=== PATIENT | female | born 1955 | race Caucasian/White ===

== ENCOUNTER 2021-12-29 11:18 | Outpatient (CLI) | payer MEDICARE ==
[2021-12-29 12:18] LABS: Anion Gap 15 mmol/L (10-20); BUN (Urea Nitrogen) 11 mg/dL (9.8-20.1); Calc. Creatinine Clearance 0 mL/min (70-130); Calcium 9.3 mg/dL (7.8-10.44); Carbon Dioxide 22 mmol/L (23-31); Chloride 98 mmol/L (98-107); Glucose 94 mg/dL (80-115); Potassium 4.2 mmol/L (3.5-5.1); Sodium 131 mmol/L (136-145)
[2021-12-30 00:10] LABS: SARS-CoV-2 PCR by NAA Not Detected (NotDetected)
== END 2021-12-29 11:19 | disposition home or self-care (01) ==
LOC: LABBT 11:18
PROVIDERS: ATTEND Surgery
DX: Z01.818 Encounter for other preprocedural examination (principal); C54.2 Malignant neoplasm of myometrium; Z20.822 Contact with and (suspected) exposure to COVID-19
CPT/HCPCS: 80048; 93005; U0003; U0005; 93010

== ENCOUNTER 2022-04-14 14:51 | Inpatient (IN) | payer OTHER ==
[2022-04-14] MEDS ORDERED: Promethazine HCl 25 MG/ML VIAL IM PRN (16:49)
[2022-04-14] MEDS ORDERED: Insulin Regular 300 UNITS/3 ML VIAL SC PRN ×2 (16:49)
[2022-04-14] MEDS ORDERED: Ondansetron PF 4 MG/2 ML Vial IVP PRN (16:49)
[2022-04-14] MEDS ORDERED: Dextrose 50% Abboject 50 ML SYRINGE SLOW IVP PRN (16:49)
[2022-04-14] MEDS ORDERED: Morphine 2 MG/ML VIAL SLOW IVP PRN (16:49)
[2022-04-14] MEDS ORDERED: Dextrose 5% in Water 1,000 ML IV PRN (16:49)
[2022-04-14] MEDS ORDERED: Ondansetron ODT 4 MG TAB PO PRN (16:49)
[2022-04-14] MEDS ORDERED: hydrALAZINE 20 MG/ML VIAL SLOW IVP PRN (16:49)
[2022-04-14 17:14] LABS: #Basophils 0.1 thou/uL (0.0-0.2); #Eosinphils 0.1 thou/uL (0.0-0.7); #Lymphocytes 1.7 thou/uL (1.20-3.40); #Monocytes 0.6 thou/uL (0.11-0.59); #Neutrophils 10.3 thou/uL (1.40-6.50); %Basophils 0.4 % (0.0-1.0); %Eosinophils 0.6 % (0.0-10.0); %Lymphocytes 13.2 % (21.0-51.0); %Neutrophils 80.7 % (42.0-75.0); Hemoglobin 11.6 g/dL (12.0-16.0); Mean Corpuscular HGB CONC 35.1 g/dL (32.0-36.0); Mean Platelet Volume 5.6 fL (7.4-10.4); Platelet Count 421 thou/uL (130-400); RBC Distribution Width 16.4 % (11.5-14.5); Red Blood Cell (RBC) Count 2.97 mill/uL (4.20-5.40); White Blood Cell (WBC) Count 12.7 thou/uL (4.8-10.8)
[2022-04-14 17:25] LABS: MDiff Complete? YES; Macrocytosis SLIGHT = 6-15 cells (100X) (0-5/hpf); Platelet Morphology Comment Appears Increased
[2022-04-14 17:29] LABS: SARS-CoV-2 NAA Rapid Test Not Detected (NotDetected)
[2022-04-14] MEDS ORDERED: Gabapentin 100 MG CAP PO SCH (17:30)
[2022-04-14 17:36] LABS: Anion Gap 12 mmol/L (10-20); BUN (Urea Nitrogen) 10 mg/dL (9.8-20.1); Calc. Creatinine Clearance 0 mL/min (70-130); Calcium 8.8 mg/dL (7.8-10.44); Carbon Dioxide 22 mmol/L (23-31); Chloride 91 mmol/L (98-107); Estimated GFR 97; Glucose 106 mg/dL (80-115); Magnesium 1.9 mg/dL (1.6-2.6); Phosphorus 3.1 mg/dL (2.3-4.7); Potassium 4.4 mmol/L (3.5-5.1); Sodium 121 mmol/L (136-145)
[2022-04-14] MEDS ORDERED: CEFAZOLIN 2 GM in Sodium Chloride 0.9% 100 ML IVPB SCH (19:00)
[2022-04-14] MEDS ORDERED: Morphine 4 MG/ML VIAL ONE (19:36)
[2022-04-14 21:30] LABS: Magnesium 1.9 mg/dL (1.6-2.6); Phosphorus 3.3 mg/dL (2.3-4.7)
[2022-04-14] MEDS: Senokot S 8.6-50 MG TAB PO SCH (22:37)
[2022-04-14] MEDS: Famotidine 20 MG TAB PO SCH (22:37)
[2022-04-14] MEDS: Ketorolac Tromethamine 30 MG/ML VIAL IVP SCH (22:38)
[2022-04-14] MEDS: traMADol HCl 50 MG TAB PO PRN (22:38)
[2022-04-14] MEDS: Gabapentin 100 MG CAP PO SCH (22:38)
[2022-04-14] MEDS: Acetaminophen 500 MG TAB PO SCH (22:42)
[2022-04-14] MEDS: traMADol HCl 50 MG TAB PO SCH (22:43)
[2022-04-14] MEDS ORDERED: Sodium Chloride 0.9% 1,000 ML IV SCH (23:50)
[2022-04-15] MEDS: Acetaminophen 500 MG TAB PO SCH ×4 (00:04→18:21)
[2022-04-15] MEDS: Melatonin 3 MG TAB PO PRN (00:04)
[2022-04-15] MEDS: traMADol HCl 50 MG TAB PO SCH ×4 (00:05→18:21)
[2022-04-15 01:14] VITALS: BMI 39.1
[2022-04-15] MEDS: Morphine 4 MG/ML VIAL SLOW IVP PRN ×5 (01:39→22:06)
[2022-04-15] MEDS: Ketorolac Tromethamine 30 MG/ML VIAL IVP SCH ×4 (02:52→20:35)
[2022-04-15 05:13] LABS: #Basophils 0.1 thou/uL (0.0-0.2); #Eosinphils 0.2 thou/uL (0.0-0.7); #Lymphocytes 2.5 thou/uL (1.20-3.40); #Monocytes 0.7 thou/uL (0.11-0.59); #Neutrophils 4.5 thou/uL (1.40-6.50); %Eosinophils 2.4 % (0.0-10.0); %Monocytes 9.3 % (0.0-10.0); %Neutrophils 56.3 % (42.0-75.0); Hemoglobin 10.7 g/dL (12.0-16.0); Mean Corpuscular HGB CONC 36.2 g/dL (32.0-36.0); Mean Corpuscular Hemoglobin 40.5 pg (27.0-31.0); Mean Platelet Volume 5.6 fL (7.4-10.4); Platelet Count 394 thou/uL (130-400); RBC Distribution Width 16.2 % (11.5-14.5); Red Blood Cell (RBC) Count 2.63 mill/uL (4.20-5.40)
[2022-04-15] MEDS: traMADol HCl 50 MG TAB PO PRN (05:13)
[2022-04-15 05:40] LABS: Anion Gap 11 mmol/L (10-20); BUN (Urea Nitrogen) 10 mg/dL (9.8-20.1); Calc. Creatinine Clearance 154 mL/min (70-130); Calcium 8.6 mg/dL (7.8-10.44); Carbon Dioxide 23 mmol/L (23-31); Chloride 93 mmol/L (98-107); Estimated GFR 97; Glucose 126 mg/dL (80-115); Magnesium 1.8 mg/dL (1.6-2.6); Phosphorus 4.3 mg/dL (2.3-4.7); Potassium 3.7 mmol/L (3.5-5.1); Sodium 123 mmol/L (136-145)
[2022-04-15 06:07] LABS: Troponin I 0.011 ng/mL (< 0.028)
[2022-04-15] MEDS ORDERED: Non-Formulary Item 1 EACH (Hydroxyzine Pamoate [Hydroxyzine Pamoate] 50 MG Capsule) PO PRN (08:07)
[2022-04-15] MEDS ORDERED: hydrOXYzine Pamoate 25 mg Capsule PO PRN (08:13)
[2022-04-15] MEDS ORDERED: Potassium Chloride 20 MEQ TAB PO SCH (08:15)
[2022-04-15] MEDS: Famotidine 20 MG TAB PO SCH ×2 (08:41→20:36)
[2022-04-15] MEDS: DULoxetine 60 MG CAP PO SCH ×2 (08:41→20:36)
[2022-04-15] MEDS: Gabapentin 100 MG CAP PO SCH ×3 (08:42→20:37)
[2022-04-15] MEDS: Polyethylene Glycol 3350 17 GM Packet PO SCH (08:44)
[2022-04-15] MEDS: Senokot S 8.6-50 MG TAB PO SCH ×2 (08:44→20:36)
[2022-04-15] MEDS ORDERED: Magnesium 2 GM/50 ML(in water) 2 GM in Premix Bag 1 BAG IVPB SCH (09:00)
[2022-04-15] MEDS ORDERED: BREXPIPRAZOLE 1 MG PO SCH (09:00)
[2022-04-15] MEDS ORDERED: DULoxetine 60 MG CAP PO SCH (09:00)
[2022-04-15] MEDS ORDERED: OXCARBAZEPINE 600 MG PO SCH (09:00)
[2022-04-15] MEDS ORDERED: Brexpiprazole [Rexulti] 1 MG Tablet PO SCH (09:00)
[2022-04-15] MEDS: OXcarbazepine 300 MG TAB PO SCH ×2 (10:22→15:39)
[2022-04-15] MEDS ORDERED: CEFAZOLIN 2 GM VIAL ONE (10:42)
[2022-04-15] MEDS ORDERED: Sodium Chloride 0.9% 100 ML ONE (10:43)
[2022-04-15] MEDS ORDERED: fentaNYL Citrate/PF 100 MCG/2 ML SYRINGE ONE (10:59)
[2022-04-15] MEDS ORDERED: Bupivacaine PF 0.5% 30 ML VIAL ONE (11:25)
[2022-04-15] MEDS ORDERED: Bupivacaine/Epinephrine 0.25% 30 ML VIAL ONE (11:25)
[2022-04-15] MEDS ORDERED: PROPOFOL 200 MG/20 ML VIAL ONE (11:46)
[2022-04-15] MEDS ORDERED: Lidocaine 1% PF 5 ML VIAL ONE (11:46)
[2022-04-15] MEDS ORDERED: Ondansetron PF 4 MG/2 ML Vial ONE (11:46)
[2022-04-15] MEDS ORDERED: Dexamethasone 20 MG/5 ML VIAL ONE (11:46)
[2022-04-15] MEDS ORDERED: CEFAZOLIN 2 GM in Sodium Chloride 0.9% 100 ML IVPB SCH (13:15)
[2022-04-15] MEDS ORDERED: ceFAZolin 2 GM/Dextrose 50 ML 2 GM in Premix Bag 1 BAG IVPB SCH (13:15)
[2022-04-15] MEDS ORDERED: Fentanyl 100 MCG/2 ML VIAL ONE ×2 (13:32→13:56)
[2022-04-15] MEDS ORDERED: Ondansetron HCl/PF 4 MG/2 ML Vial IVP PRN (13:34)
[2022-04-15] MEDS ORDERED: Ketorolac Tromethamine 30 MG/ML VIAL ONE (13:56)
[2022-04-15] MEDS: CEFAZOLIN 2 GM in Sodium Chloride 0.9% 100 ML IVPB SCH (18:20)
[2022-04-15] MEDS: Cyclobenzaprine 10 MG TAB PO PRN (20:37)
[2022-04-16] MEDS: traMADol HCl 50 MG TAB PO SCH ×4 (01:21→17:12)
[2022-04-16] MEDS: Melatonin 3 MG TAB PO PRN (01:21)
[2022-04-16] MEDS: Acetaminophen 500 MG TAB PO SCH ×4 (01:22→17:13)
[2022-04-16] MEDS: CEFAZOLIN 2 GM in Sodium Chloride 0.9% 100 ML IVPB SCH (03:05)
[2022-04-16] MEDS: Ketorolac Tromethamine 30 MG/ML VIAL IVP SCH ×2 (03:06→08:48)
[2022-04-16 06:24] LABS: #Lymphocytes 1.4 thou/uL (1.20-3.40); #Monocytes 1.1 thou/uL (0.11-0.59); #Neutrophils 6.9 thou/uL (1.40-6.50); %Basophils 0.2 % (0.0-1.0); %Eosinophils 0.4 % (0.0-10.0); %Lymphocytes 14.3 % (21.0-51.0); %Monocytes 11.8 % (0.0-10.0); %Neutrophils 73.2 % (42.0-75.0); Hemoglobin 10.7 g/dL (12.0-16.0); Mean Corpuscular HGB CONC 35.3 g/dL (32.0-36.0); Mean Corpuscular Hemoglobin 39.2 pg (27.0-31.0); Mean Platelet Volume 6.2 fL (7.4-10.4); Platelet Count 398 thou/uL (130-400); RBC Distribution Width 16.5 % (11.5-14.5); Red Blood Cell (RBC) Count 2.73 mill/uL (4.20-5.40); White Blood Cell (WBC) Count 9.4 thou/uL (4.8-10.8)
[2022-04-16 06:42] LABS: Anion Gap 13 mmol/L (10-20); BUN (Urea Nitrogen) 7 mg/dL (9.8-20.1); Calc. Creatinine Clearance 154 mL/min (70-130); Calcium 8.9 mg/dL (7.8-10.44); Carbon Dioxide 25 mmol/L (23-31); Chloride 96 mmol/L (98-107); Estimated GFR 97; Glucose 122 mg/dL (80-115); Magnesium 2.3 mg/dL (1.6-2.6); Phosphorus 3.9 mg/dL (2.3-4.7); Potassium 4.2 mmol/L (3.5-5.1); Sodium 130 mmol/L (136-145)
[2022-04-16] MEDS: DULoxetine 60 MG CAP PO SCH ×2 (08:53→21:18)
[2022-04-16] MEDS: Senokot S 8.6-50 MG TAB PO SCH ×2 (08:54→21:17)
[2022-04-16] MEDS: Gabapentin 100 MG CAP PO SCH ×3 (08:54→21:18)
[2022-04-16] MEDS: Famotidine 20 MG TAB PO SCH ×2 (08:55→21:18)
[2022-04-16] MEDS: Polyethylene Glycol 3350 17 GM Packet PO SCH (08:55)
[2022-04-16] MEDS ORDERED: Amlodipine 10 MG TAB PO SCH (09:15)
[2022-04-16] MEDS ORDERED: Lisinopril 20 MG TAB PO SCH (09:30)
[2022-04-16] MEDS: OXcarbazepine 300 MG TAB PO SCH ×2 (10:14→14:03)
[2022-04-16] MEDS ORDERED: Ibuprofen 600 MG TAB PO SCH (14:00)
[2022-04-16] MEDS: Ibuprofen 200 MG TAB PO SCH ×2 (14:02→21:17)
[2022-04-16] MEDS ORDERED: Atorvastatin Calcium 10 MG TAB PO SCH (21:00)
[2022-04-16] MEDS ORDERED: Pravastatin Sodium 40 MG TAB PO SCH (21:00)
[2022-04-16] MEDS ORDERED: Enoxaparin Sodium 40 MG/0.4 ML SYRINGE SC SCH (21:00)
[2022-04-16] MEDS: Cyclobenzaprine 10 MG TAB PO PRN (21:17)
[2022-04-17] MEDS: traMADol HCl 50 MG TAB PO SCH ×4 (00:30→17:29)
[2022-04-17] MEDS: Acetaminophen 500 MG TAB PO SCH ×4 (00:31→17:30)
[2022-04-17] MEDS: Ibuprofen 200 MG TAB PO SCH ×2 (05:26→14:27)
[2022-04-17 06:46] LABS: #Basophils 0.1 thou/uL (0.0-0.2); #Eosinphils 0.2 thou/uL (0.0-0.7); #Lymphocytes 1.8 thou/uL (1.20-3.40); #Monocytes 1.1 thou/uL (0.11-0.59); #Neutrophils 7.8 thou/uL (1.40-6.50); %Basophils 0.9 % (0.0-1.0); %Eosinophils 1.7 % (0.0-10.0); %Lymphocytes 16.5 % (21.0-51.0); %Monocytes 9.7 % (0.0-10.0); %Neutrophils 71.3 % (42.0-75.0); Hemoglobin 10.6 g/dL (12.0-16.0); Mean Corpuscular HGB CONC 33.3 g/dL (32.0-36.0); Mean Corpuscular Hemoglobin 37.6 pg (27.0-31.0); Mean Platelet Volume 6.6 fL (7.4-10.4); Platelet Count 391 thou/uL (130-400); RBC Distribution Width 16.4 % (11.5-14.5); Red Blood Cell (RBC) Count 2.82 mill/uL (4.20-5.40)
[2022-04-17] MEDS: Polyethylene Glycol 3350 17 GM Packet PO SCH (08:21)
[2022-04-17] MEDS: Gabapentin 100 MG CAP PO SCH ×2 (08:22→14:28)
[2022-04-17] MEDS: OXcarbazepine 300 MG TAB PO SCH ×2 (08:24→14:45)
[2022-04-17] MEDS: DULoxetine 60 MG CAP PO SCH (08:24)
[2022-04-17] MEDS: Famotidine 20 MG TAB PO SCH (08:25)
[2022-04-17] MEDS: Senokot S 8.6-50 MG TAB PO SCH (08:25)
[2022-04-17] MEDS ORDERED: Lisinopril 20 MG TAB PO SCH ×2 (09:00)
[2022-04-17] MEDS ORDERED: Amlodipine 5 MG TAB PO SCH (09:00)
[2022-04-17] MEDS ORDERED: Amlodipine 10 MG TAB PO SCH (09:00)
[2022-04-17 19:03] VITALS: BP 148/68; TEMP 97.9
== END 2022-04-17 18:48 | disposition home health service (06) | DRG 493 ==
LOC: ERS 14:51 → SJJU 16:49
PROVIDERS: ADMIT Physician Assistant Medical; ATTEND Surgery
PROC: 0QSH04Z Reposition Left Tibia with Internal Fixation Device, Open Approach (ICD-10-PCS; principal; 2022-04-15)
DX: S82.852A Displaced trimalleolar fracture of left lower leg, initial encounter for closed fracture (principal); E87.1 Hypo-osmolality and hyponatremia; W01.0XXA Fall on same level from slipping, tripping and stumbling without subsequent striking against object, initial encounter; Z20.822 Contact with and (suspected) exposure to COVID-19; I10 Essential (primary) hypertension; F31.9 Bipolar disorder, unspecified; E11.9 Type 2 diabetes mellitus without complications; E66.9 Obesity, unspecified; E83.42 Hypomagnesemia; Z90.710 Acquired absence of both cervix and uterus; Z88.8 Allergy status to other drugs, medicaments and biological substances; Z79.84 Long term (current) use of oral hypoglycemic drugs; Z79.899 Other long term (current) drug therapy; Z68.39 Body mass index [BMI] 39.0-39.9, adult
CPT/HCPCS: 27762; 36415; 36416; 71045; 76000; 80048; 83735; 84100; 84484; 85025; 93005; 93010; 96372; C1713; C1874; G0390; J0690; J1100; J1650; J1885; J2270; J2405; J2704; J3010; J3475; J3490; J7050; S0020; U0002

== ENCOUNTER 2022-04-24 10:04 | Inpatient (IN) | payer OTHER ==
[2022-04-24] MEDS ORDERED: Promethazine HCl 25 MG/ML VIAL IM PRN (12:34)
[2022-04-24] MEDS ORDERED: Dextrose 5% in Water 1,000 ML IV PRN (12:34)
[2022-04-24] MEDS ORDERED: Morphine 2 MG/ML VIAL SLOW IVP PRN (12:34)
[2022-04-24] MEDS ORDERED: Dextrose 50% Abboject 50 ML SYRINGE SLOW IVP PRN (12:34)
[2022-04-24] MEDS ORDERED: Ondansetron PF 4 MG/2 ML Vial IVP PRN (12:34)
[2022-04-24] MEDS ORDERED: hydrALAZINE 20 MG/ML VIAL SLOW IVP PRN (12:34)
[2022-04-24] MEDS ORDERED: CEFAZOLIN 2 GM in Sodium Chloride 0.9% 100 ML IVPB SCH (13:15)
[2022-04-24 13:24] VITALS: BMI 38.7
[2022-04-24] MEDS ORDERED: hydrOXYzine Pamoate 25 mg Capsule PO PRN (14:34)
[2022-04-24] MEDS: Acetaminophen 500 MG TAB PO SCH ×2 (14:59→20:42)
[2022-04-24] MEDS: OXcarbazepine 300 MG TAB PO SCH (15:00)
[2022-04-24 17:25] LABS: SARS-CoV-2 NAA Rapid Test Not Detected (NotDetected)
[2022-04-24] MEDS: Sodium Chloride 0.9% 1,000 ML IV SCH ×2 (18:56→20:45)
[2022-04-24] MEDS: Hydroxyurea 500 MG CAP PO SCH (20:43)
[2022-04-24] MEDS: Atorvastatin Calcium 10 MG TAB PO SCH (20:43)
[2022-04-24] MEDS: Famotidine/PF 20 mg/2ml Vial SLOW IVP SCH (20:43)
[2022-04-24] MEDS: traZODone HCl 50 MG TAB PO SCH (20:43)
[2022-04-24 23:35] LABS: Bacteria/HPF None Seen HPF (None Seen); RBC/HPF 0-3 HPF (0-3); Squamous Epithelial 0-3 HPF (0-3)
[2022-04-25] MEDS: Sodium Chloride 0.9% 1,000 ML IV SCH (01:11)
[2022-04-25] MEDS: Acetaminophen 500 MG TAB PO SCH ×4 (01:11→20:09)
[2022-04-25 05:36] LABS: #Basophils 0.1 thou/uL (0.0-0.2); #Eosinphils 0.2 thou/uL (0.0-0.7); #Lymphocytes 1.9 thou/uL (1.20-3.40); #Monocytes 0.6 thou/uL (0.11-0.59); %Basophils 1.1 % (0.0-1.0); %Eosinophils 2.4 % (0.0-10.0); %Lymphocytes 21.7 % (21.0-51.0); %Monocytes 6.8 % (0.0-10.0); %Neutrophils 67.9 % (42.0-75.0); Hemoglobin 12.5 g/dL (12.0-16.0); Mean Corpuscular HGB CONC 35.6 g/dL (32.0-36.0); Mean Corpuscular Hemoglobin 40.4 pg (27.0-31.0); Mean Platelet Volume 6.5 fL (7.4-10.4); Platelet Count 575 thou/uL (130-400); RBC Distribution Width 16.2 % (11.5-14.5); White Blood Cell (WBC) Count 8.9 thou/uL (4.8-10.8)
[2022-04-25 05:42] LABS: Hemoglobin A1c 5.1 % (4.0-6.0)
[2022-04-25 05:57] LABS: Phosphorus 4.3 mg/dL (2.3-4.7)
[2022-04-25 05:58] LABS: Anion Gap 17 mmol/L (10-20); BUN (Urea Nitrogen) 7 mg/dL (9.8-20.1); Calc. Creatinine Clearance 148 mL/min (70-130); Calcium 9.3 mg/dL (7.8-10.44); Carbon Dioxide 24 mmol/L (23-31); Chloride 101 mmol/L (98-107); Estimated GFR 97; Glucose 131 mg/dL (80-115); Magnesium 2.3 mg/dL (1.6-2.6); Potassium 4.5 mmol/L (3.5-5.1); Sodium 137 mmol/L (136-145)
[2022-04-25] MEDS ORDERED: Insulin Regular 300 UNITS/3 ML VIAL SC PRN ×2 (07:40)
[2022-04-25] MEDS: OXcarbazepine 300 MG TAB PO SCH ×2 (08:52→15:59)
[2022-04-25] MEDS: Amlodipine 10 MG TAB PO SCH (08:52)
[2022-04-25] MEDS: DULoxetine 60 MG CAP PO SCH (08:52)
[2022-04-25] MEDS: Hydroxyurea 500 MG CAP PO SCH ×2 (08:52→20:10)
[2022-04-25] MEDS: Famotidine/PF 20 mg/2ml Vial SLOW IVP SCH ×2 (08:53→21:37)
[2022-04-25] MEDS: Lisinopril 20 MG TAB PO SCH (08:53)
[2022-04-25] MEDS ORDERED: Amlodipine 5 MG TAB PO SCH (09:00)
[2022-04-25] MEDS: Polyethylene Glycol 3350 17 GM Packet PO SCH (11:33)
[2022-04-25] MEDS: Senokot S 8.6-50 MG TAB PO SCH ×2 (11:33→20:10)
[2022-04-25] MEDS ORDERED: Sodium Chloride 0.9% 100 ML ONE (15:36)
[2022-04-25] MEDS ORDERED: CEFAZOLIN 2 GM VIAL ONE (15:36)
[2022-04-25] MEDS ORDERED: fentaNYL Citrate/PF 100 MCG/2 ML SYRINGE ONE ×2 (15:38→16:20)
[2022-04-25] MEDS ORDERED: ePHEDrine 50 MG/ML VIAL ONE (15:48)
[2022-04-25] MEDS ORDERED: Ondansetron PF 4 MG/2 ML Vial ONE (15:48)
[2022-04-25] MEDS ORDERED: Dexamethasone 20 MG/5 ML VIAL ONE (15:48)
[2022-04-25] MEDS ORDERED: PROPOFOL 200 MG/20 ML VIAL ONE (15:48)
[2022-04-25] MEDS ORDERED: Lidocaine 1% PF 5 ML VIAL ONE (15:48)
[2022-04-25] MEDS ORDERED: HYDROmorphone 2 MG/ML VIAL SLOW IVP PRN (17:21)
[2022-04-25] MEDS ORDERED: Ondansetron HCl/PF 4 MG/2 ML Vial IVP PRN (17:21)
[2022-04-25] MEDS ORDERED: Morphine Sulfate 2 MG/ML SYRINGE SLOW IVP PRN (17:21)
[2022-04-25] MEDS ORDERED: Meperidine HCl/PF 25 MG/ML VIAL SLOW IVP PRN (17:21)
[2022-04-25] MEDS ORDERED: Fentanyl 100 MCG/2 ML VIAL ONE (17:23)
[2022-04-25] MEDS: Atorvastatin Calcium 10 MG TAB PO SCH (20:10)
[2022-04-25] MEDS: traZODone HCl 50 MG TAB PO SCH (20:10)
[2022-04-25] MEDS: CEFAZOLIN 2 GM in Sodium Chloride 0.9% 100 ML IVPB SCH (23:45)
[2022-04-26] MEDS: Acetaminophen 500 MG TAB PO SCH ×4 (02:24→20:32)
[2022-04-26 05:54] LABS: #Basophils 0.1 thou/uL (0.0-0.2); #Eosinphils 0.1 thou/uL (0.0-0.7); #Lymphocytes 1.9 thou/uL (1.20-3.40); #Monocytes 1.1 thou/uL (0.11-0.59); #Neutrophils 9.2 thou/uL (1.40-6.50); %Basophils 0.4 % (0.0-1.0); %Eosinophils 0.6 % (0.0-10.0); %Lymphocytes 15.3 % (21.0-51.0); %Monocytes 8.8 % (0.0-10.0); %Neutrophils 74.8 % (42.0-75.0); Hemoglobin 10.1 g/dL (12.0-16.0); Mean Corpuscular HGB CONC 34.4 g/dL (32.0-36.0); Mean Corpuscular Hemoglobin 39.2 pg (27.0-31.0); Platelet Count 515 thou/uL (130-400); RBC Distribution Width 16.1 % (11.5-14.5); Red Blood Cell (RBC) Count 2.57 mill/uL (4.20-5.40); White Blood Cell (WBC) Count 12.3 thou/uL (4.8-10.8)
[2022-04-26 06:23] LABS: Anion Gap 14 mmol/L (10-20); BUN (Urea Nitrogen) 13 mg/dL (9.8-20.1); Calc. Creatinine Clearance 146 mL/min (70-130); Calcium 9.1 mg/dL (7.8-10.44); Carbon Dioxide 25 mmol/L (23-31); Chloride 98 mmol/L (98-107); Estimated GFR 97; Glucose 121 mg/dL (80-115); Phosphorus 4.6 mg/dL (2.3-4.7); Potassium 4.2 mmol/L (3.5-5.1); Sodium 133 mmol/L (136-145)
[2022-04-26] MEDS: CEFAZOLIN 2 GM in Sodium Chloride 0.9% 100 ML IVPB SCH (09:02)
[2022-04-26] MEDS: Hydroxyurea 500 MG CAP PO SCH ×2 (09:05→20:31)
[2022-04-26] MEDS: Lisinopril 20 MG TAB PO SCH (09:05)
[2022-04-26] MEDS: Polyethylene Glycol 3350 17 GM Packet PO SCH (09:05)
[2022-04-26] MEDS: Senokot S 8.6-50 MG TAB PO SCH ×2 (09:05→20:32)
[2022-04-26] MEDS: OXcarbazepine 300 MG TAB PO SCH ×2 (09:05→16:01)
[2022-04-26] MEDS: Amlodipine 10 MG TAB PO SCH (09:05)
[2022-04-26] MEDS: DULoxetine 60 MG CAP PO SCH (09:05)
[2022-04-26] MEDS: Famotidine/PF 20 mg/2ml Vial SLOW IVP SCH ×3 (09:06→20:32)
[2022-04-26] MEDS: Perphenazine 2 MG TAB PO SCH ×2 (16:01→20:32)
[2022-04-26] MEDS: Gabapentin 100 MG CAP PO SCH ×2 (16:03→20:32)
[2022-04-26] MEDS: traZODone HCl 50 MG TAB PO SCH (20:31)
[2022-04-26] MEDS: Atorvastatin Calcium 10 MG TAB PO SCH (20:31)
[2022-04-26] MEDS: Enoxaparin Sodium 40 MG/0.4 ML SYRINGE SC SCH (20:33)
[2022-04-27] MEDS: Acetaminophen 500 MG TAB PO SCH ×4 (01:41→20:41)
[2022-04-27 06:51] LABS: #Basophils 0.1 thou/uL (0.0-0.2); #Eosinphils 0.1 thou/uL (0.0-0.7); #Lymphocytes 1.9 thou/uL (1.20-3.40); #Monocytes 1.1 thou/uL (0.11-0.59); #Neutrophils 11.7 thou/uL (1.40-6.50); %Basophils 0.4 % (0.0-1.0); %Eosinophils 0.8 % (0.0-10.0); %Lymphocytes 12.7 % (21.0-51.0); %Monocytes 7.3 % (0.0-10.0); %Neutrophils 78.8 % (42.0-75.0); Hemoglobin 12.2 g/dL (12.0-16.0); Mean Corpuscular HGB CONC 33.8 g/dL (32.0-36.0); Mean Corpuscular Hemoglobin 38.7 pg (27.0-31.0); Mean Platelet Volume 6.1 fL (7.4-10.4); Platelet Count 592 thou/uL (130-400); RBC Distribution Width 15.8 % (11.5-14.5); Red Blood Cell (RBC) Count 3.16 mill/uL (4.20-5.40); White Blood Cell (WBC) Count 14.9 thou/uL (4.8-10.8)
[2022-04-27 07:13] LABS: Anion Gap 17 mmol/L (10-20); BUN (Urea Nitrogen) 7 mg/dL (9.8-20.1); Calc. Creatinine Clearance 148 mL/min (70-130); Calcium 9.5 mg/dL (7.8-10.44); Carbon Dioxide 25 mmol/L (23-31); Chloride 94 mmol/L (98-107); Estimated GFR 97; Glucose 132 mg/dL (80-115); Magnesium 1.9 mg/dL (1.6-2.6); Phosphorus 4.2 mg/dL (2.3-4.7); Potassium 3.9 mmol/L (3.5-5.1); Sodium 132 mmol/L (136-145)
[2022-04-27] MEDS: DULoxetine 60 MG CAP PO SCH (08:58)
[2022-04-27] MEDS: Amlodipine 10 MG TAB PO SCH (08:59)
[2022-04-27] MEDS: Gabapentin 100 MG CAP PO SCH ×3 (09:00→20:41)
[2022-04-27] MEDS: Lisinopril 20 MG TAB PO SCH (09:00)
[2022-04-27] MEDS: metFORMIN 500 MG TAB PO SCH (09:01)
[2022-04-27] MEDS: OXcarbazepine 300 MG TAB PO SCH ×2 (09:03→14:27)
[2022-04-27] MEDS: Hydroxyurea 500 MG CAP PO SCH ×2 (09:04→20:41)
[2022-04-27] MEDS: Perphenazine 2 MG TAB PO SCH ×3 (09:04→20:40)
[2022-04-27] MEDS: Senokot S 8.6-50 MG TAB PO SCH ×2 (09:05→20:42)
[2022-04-27] MEDS: Famotidine/PF 20 mg/2ml Vial SLOW IVP SCH (09:05)
[2022-04-27] MEDS: Polyethylene Glycol 3350 17 GM Packet PO SCH (09:05)
[2022-04-27] MEDS: Aripiprazole 10 MG TAB PO SCH (09:05)
[2022-04-27] MEDS ORDERED: traMADol HCl 50 MG TAB PO PRN ×2 (10:01)
[2022-04-27] MEDS: Enoxaparin Sodium 40 MG/0.4 ML SYRINGE SC SCH (20:41)
[2022-04-27] MEDS: traZODone HCl 50 MG TAB PO SCH (20:42)
[2022-04-27] MEDS: Atorvastatin Calcium 10 MG TAB PO SCH (20:42)
[2022-04-27] MEDS ORDERED: Melatonin 3 MG TAB PO SCH (21:00)
[2022-04-28] MEDS: Acetaminophen 500 MG TAB PO SCH ×3 (01:47→17:37)
[2022-04-28 07:02] LABS: Anion Gap 14 mmol/L (10-20); BUN (Urea Nitrogen) 14 mg/dL (9.8-20.1); Calc. Creatinine Clearance 155 mL/min (70-130); Calcium 9.1 mg/dL (7.8-10.44); Carbon Dioxide 25 mmol/L (23-31); Chloride 95 mmol/L (98-107); Estimated GFR 98; Glucose 157 mg/dL (80-115); Phosphorus 4.1 mg/dL (2.3-4.7); Potassium 3.7 mmol/L (3.5-5.1); Sodium 130 mmol/L (136-145)
[2022-04-28 09:29] LABS: Magnesium 1.9 mg/dL (1.6-2.6)
[2022-04-28] MEDS: Aripiprazole 10 MG TAB PO SCH (10:16)
[2022-04-28] MEDS: Perphenazine 2 MG TAB PO SCH ×2 (10:16→16:05)
[2022-04-28] MEDS: Senokot S 8.6-50 MG TAB PO SCH (10:17)
[2022-04-28] MEDS: Polyethylene Glycol 3350 17 GM Packet PO SCH (10:18)
[2022-04-28] MEDS: OXcarbazepine 300 MG TAB PO SCH ×2 (10:18→16:05)
[2022-04-28] MEDS: DULoxetine 60 MG CAP PO SCH (10:18)
[2022-04-28] MEDS: Amlodipine 10 MG TAB PO SCH (10:18)
[2022-04-28] MEDS: Gabapentin 100 MG CAP PO SCH ×2 (10:19→18:04)
[2022-04-28] MEDS: metFORMIN 500 MG TAB PO SCH (10:19)
[2022-04-28] MEDS: Lisinopril 20 MG TAB PO SCH (10:20)
[2022-04-28] MEDS: Hydroxyurea 500 MG CAP PO SCH (10:20)
[2022-04-28 21:57] VITALS: BP 157/76; TEMP 98.5
== END 2022-04-28 21:50 | disposition swing bed (61) | DRG 493 ==
LOC: SURG B 12:16
PROVIDERS: ADMIT Physician Assistant Medical; ATTEND Surgery
PROC: 0QHH36Z Insertion of Intramedullary Internal Fixation Device into Left Tibia, Percutaneous Approach (ICD-10-PCS; principal; 2022-04-26)
PROC: 0QP Lower Bones, Removal (ICD-10-PCS; 2022-04-26)
DX: T84.127A Displacement of internal fixation device of bone of left lower leg, initial encounter (principal); I42.8 Other cardiomyopathies; E87.1 Hypo-osmolality and hyponatremia; I47.2 Ventricular tachycardia; S82.852A Displaced trimalleolar fracture of left lower leg, initial encounter for closed fracture; Y83.8 Other surgical procedures as the cause of abnormal reaction of the patient, or of later complication, without mention of misadventure at the time of the procedure; Z20.822 Contact with and (suspected) exposure to COVID-19; I10 Essential (primary) hypertension; F31.9 Bipolar disorder, unspecified; E78.5 Hyperlipidemia, unspecified; E11.41 Type 2 diabetes mellitus with diabetic mononeuropathy; W19.XXXA Unspecified fall, initial encounter; Z79.84 Long term (current) use of oral hypoglycemic drugs; Z79.899 Other long term (current) drug therapy; Z90.710 Acquired absence of both cervix and uterus; Z88.8 Allergy status to other drugs, medicaments and biological substances
CPT/HCPCS: 36415; 36416; 71045; 76000; 80048; 81015; 83036; 83735; 83880; 84100; 85025; 86850; 86900; 86901; 93005; 93010; J0360; J0690; J1100; J1650; J2405; J2704; J3010; J3490; J7050; Q0175; S0028; U0002